=== PATIENT | female | born 1960 | race African-American/Black ===

== ENCOUNTER 2020-12-07 09:10 | Emergency (ER) | payer OTHER ==
[~2020-12-07] VITALS: Ht 170.2 cm; Wt 100.0 kg
[2020-12-07 10:08] LABS: BASOPHILS % 1.1 % (0.0-2.0); EOSINOPHILS % 1.8 % (0.0-5.0); HEMATOCRIT. 39.9 % (36.0-48.0); HEMOGLOBIN. 13.2 g/dL (12.0-16.0); LYMPHOCYTES % 35.7 % (20.0-50.0); MEAN CORPUSCULAR HEMOGLOBIN 29.7 pg (28.0-32.0); MEAN CORPUSCULAR VOLUME 89.7 fL (81.0-99.0); MONOCYTES % 7.1 % (2.0-8.0); NEUTROPHILS % 54.3 % (40.0-76.0); PLATELET 228 x1000/uL (130-400); RED BLOOD CELL COUNT 4.45 mill/uL (4.2-5.4); RED CELL DISTRIBUTION WIDTH 13.2 % (11.6-14.6)
[2020-12-07 11:22] LABS: CHLORIDE 104 mEq/L (98-107)
[2020-12-07 11:26] LABS: PROTHROMBIN TIME 10.7 sec (9.6-11.0)
[2020-12-07] MEDS ORDERED: ASPIRIN 325MG EC TABLET PO ONE (12:00)
[2020-12-07 15:00] VITALS: BP 12/71
== END 2020-12-07 16:16 | disposition short-term general hospital (02) ==
LOC: ER 09:10
DX: R20.0 Anesthesia of skin (principal); R53.1 Weakness; M21.331 Wrist drop, right wrist
CPT/HCPCS: 36415; 71045; 80053; 83880; 84484; 85025; 93005; 99285